=== PATIENT | male | born 1980 | race Caucasian/White ===

== ENCOUNTER 2016-12-01 03:01 | Emergency (ER) | payer OTHER ==
[~2016-12-01] VITALS: Ht 177.8 cm; Wt 122.9 kg
--- NOTE | ~2016-12-01 | EKG ---
PATIENT: DORIS NASH UNIT #: [id number] Ventricular Rate: 69 BPM Atrial Rate: 69 BPM P-R Interval: 172 ms QRS Duration: 86 ms Q-T Interval: 374 ms QTC Calculation(Bezet): 400 ms P Gordon: 48 degrees Calculated R Gordon: 39 degrees Calculated T Gordon: 42 degrees Diagnosis Line: Normal sinus rhythm Diagnosis Line: Normal ECG Diagnosis Line: When compared with ECG of 07-APR-2016 13:05, Diagnosis Line: No significant change was found Diagnosis Line: Confirmed by MISSY MC MD ([id number]) on Diagnosis Line: 12/02/2016 3:17:51 PM INTERPRETING MD: XENIA
--- NOTE | ~2016-12-01 | CR72 ---
[facility]. [facility] A Service of [facility] & [facility] RADIOLOGY TEXT RESULTS PATIENT: DORIS NASH LOCATION: SED : 82 UNIT #: [id number] AGE: [address]: Thomas Hinds MD SEX: M ORDER DR: [id number] [place] [id number] E MR#: [id number] Acc #: [id number] NAME: DORIS NASH : 1980 SEX: M STUDY DATE/TIME: 12/01/2016 4:11 UNIT: SED ROOM: STUDY DESCRIPTION: CR Chest Single View Portable Attending Physician: Thomas Hinds M.D. Ordering Physician: Thomas Hinds M.D. Primary Care Physician: Enrique Patrick M.D. MEDICAL IMAGING REPORT This report is preliminary unless electronic signature is present. EXAM AP portable chest 12/01/2016 HISTORY Dizziness, syncopal episode and sweating since 19:00 on 11/30/2016. Abrasion to the right lower quadrant. COMPARISON AP portable chest 04/07/2016. FINDINGS A single AP portable view of the chest shows both lungs to be clear. The heart is normal in size. The mediastinal contour is normal. No significant bone abnormalities are seen. IMPRESSION Normal portable chest. Dictated by... Lana Coombs M.D. THIS IS AN ELECTRONICALLY VERIFIED REPORT Lana Coombs M.D. at 12/04/2016 8:41 AM RYAN/holly TD: 12/01/2016 06:58 JOB #: [id number] MEDICAL IMAGING REPORT Page 1 of 1
[~2016-12-01 03:01] MED LIST: ACULAR LS5 ML OP; ALBUTEROL17 GM INH; AMARYL1 MG PO; ATENOLOL PO; ATENOLOL50 MG PO; BENZONATATE PO; BISOPROLOL/HCTZ1 TA4 PO; BLEPH-105 ML OP; BUSPIRONE PO; CELEXA20 MG PO; CYMBALTA PO; DIOVAN HCT 160-1 TAB PO; DOXYCYCLINE MO100 MG PO; DULOXETINE HCL60 MG PO; EFFEXOR PO; FLEXERIL PO; FORTAMET1000 MG/B1 PO; HYDROCHLOROTHIA25 MG PO; HYDROCODON-ACE1 EAC7; IBUPROFEN PO; IBUPROFEN800 MG PO; KEFLEX PO; LASIX PO; LISINOPRIL PO; LISINOPRIL10 MG PO; MEDROL DOSE PAK; MEDROL4 MG/DOSE- PO; MOBIC PO; MOBIC15 MG PO; NEURONTIN; NO MEDICATIONS; OMEGA 3 FISH OI1 CAP PO; ONDANSETRON ODT4 MG DOB; PEN-VEE K PO; PHENERGAN12.5 MG/0. IM; PHENERGAN25 MG PO; PRINIVIL20 M1 PO; TOPROL XL PO; TRAMADOL PO; VICODIN 5/1 TAB 5/50 PO; ZESTORETIC 20/11 TAB PO; ZIAC PO; ZITHROMAX PO; ZYRTEC-D T1 TAB.SR . PO
[2016-12-01] MEDS ORDERED: PRINIVIL20 M1 PO (03:11)
[2016-12-01 03:49] LABS: BASOPHIL# 0.1 X10e3 (0-0.3); EOSINOPHIL# 0.2 X10e3 (0-0.7); EOSINOPHIL% 2.3 % (0.0-7.0); HEMATOCRIT 42.7 % (38.0-50.0); HEMOGLOBIN 15.2 gm/dL (13.0-16.0); LYMPHOCYTE# 2.7 X10e3 (1.0-3.5); LYMPHOCYTE% 37.1 % (17.0-45.0); MEAN CELL VOLUME 86.9 FL (83-96); MEAN CORPUSCULAR HEMOGLOBIN 30.9 PG (28-34); MEAN CORPUSCULAR HGB CONC 35.5 g/dL (30-36); MEAN PLATELET VOLUME 7.9 FL (6.5-11.5); MONOCYTE# 0.7 X10e3 (0-1.0); MONOCYTE% 9.3 % (3.0-12.0); NEUTROPHIL# 3.7 X10e3 (1.5-7.1); NEUTROPHIL% 50.3 % (40-75); PLATELET COUNT 180 X10e3 (140-420); RED BLOOD COUNT 4.91 X10e (3.90-5.60); RED CELL DISTRIBUTION WIDTH 13.1 % (11.0-15.5); WHITE BLOOD COUNT 7.4 X10e3 (4.0-10.5)
[2016-12-01 03:50] LABS: DIFF IND NO
[2016-12-01 04:00] LABS: POC - CKMB 1.3 ng/mL (0.0-7.9); POC - TROPONIN <0.05 ng/mL (<=0.05)
[2016-12-01 04:05] LABS: ALBUMIN SERUM 3.5 g/dL (3.5-5.0); BILIRUBIN, DIRECT 0.1 mg/dL (0.0-0.2); BILIRUBIN,INDIRECT 0.5 mg/dL (0.0-0.9); BILIRUBIN,TOTAL 0.6 mg/dL (0.2-2.0); BUN/CREATININE RATIO 13.33; CALCIUM SERUM 9.1 mg/dL (8.4-10.2); CREATININE SERUM 0.9 mg/dL (0.6-1.4); GLOM FILT RATE Estimated 110.3 mL/min (>60); POTASSIUM 3.6 mmol/L (3.5-5.1); PROTEIN TOTAL SERUM 6.7 g/dL (6.0-8.3)
[2016-12-01 04:23] LABS: AMPHETAMINE NEG (NEG); BARBITURATES NEG (NEG); BENZODIAZEPINES NEG (NEG); COCAINE NEG (NEG); MARIJUANA NEG (NEG); OPIATES NEG (NEG); TRICYCLIC ANTIDEPRESSANTS NEG (NEG); U METHADONE NEG (NEG)
== END 2016-12-01 04:53 | disposition home or self-care (01) ==
LOC: SED 03:01
PROVIDERS: Emergency Medicine
DX: R42 Dizziness and giddiness (principal); R55 Syncope and collapse; I10 Essential (primary) hypertension; Z88.8 Allergy status to other drugs, medicaments and biological substances; M25.559 Pain in unspecified hip; G89.29 Other chronic pain
CPT/HCPCS: 36415; 71010; 80048; 80076; 80307; 82553; 82947; 83690; 84484; 85025; 93005; 96360; 99284